=== PATIENT | male | born 1965 | race Caucasian/White ===

== ENCOUNTER 2019-07-24 04:23 | Emergency (ER) | payer SELFPAY ==
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
[2019-07-24 06:19] VITALS: BP 128/73
== END 2019-07-24 06:09 | disposition home or self-care (01) ==
LOC: ED 04:23
DX: M54.6 Pain in thoracic spine (principal); M25.512 Pain in left shoulder; M54.2 Cervicalgia; V87.7XXA Person injured in collision between other specified motor vehicles (traffic), initial encounter
CPT/HCPCS: 70450; 72125; 72128; 99282; 99283